=== PATIENT | female | born 1995 ===

== ENCOUNTER 2017-10-31 15:11 | Emergency (ER) | payer MEDICAID ==
[2017-10-31 15:19] VITALS: BP 127/88; PULSE 96; RESP 18; TEMP 97.5; O2SAT 99
[2017-10-31] MEDS ORDERED: Sodium Chloride 0.9% 1,000 ML IV STA (15:29)
--- NOTE | 2017-10-31 15:39 | ED PDOC ---
HPI: Female Pain Time Seen by Provider: 10/31/17 15:28 Chief Complaint (Nursing): Female Genitourinary Chief Complaint (Provider): Female genitourinary History Per: Patient History/Exam Limitations: no limitations Onset/Duration Of Symptoms: Days (x1) Severity: None Pain Scale Rating Of: 0 Quality Of Discomfort: denies: Burning Associated Symptoms: denies: Fever, Chills, Urinary Symptoms (dysuria) Additional Complaint(s): Jackeline Cole is a 22 year old female, with no past medical history, who was brought to the emergency department by EMS for blood in urine onset since today. Patient was at work, she went to the bathroom when she noticed blood in her urine. She states in wasn't heavy bleeding, but noted blood in toilet and after she wiped. Patient is 7 weeks , and this will be her 3rd . She denies any abdominal pain, dysuria, fever or chills. No further medical complaints. PMD: Dr. Jeff : 3 Para: 2 Past Medical History Reviewed: Historical Data, Nursing Documentation, Vital Signs Vital Signs: Last Vital Signs Temp 97.5 F L 10/31/17 15:17 Pulse 96 H 10/31/17 15:17 Resp 18 10/31/17 15:17 BP 127/88 10/31/17 15:17 Pulse Ox 99 10/31/17 15:17 - Family History Family History: States: Unknown Family Hx - Social History Current smoker - smoking cessation education provided: No Alcohol: None Drugs: Denies - Allergies Allergies/Adverse Reactions: Allergies Allergy/AdvReac Type Severity Reaction Status Date / Time No Known Allergies Allergy Verified 10/31/17 15:17 Review of Systems ROS Statement: Except As Marked, All Systems Reviewed And Found Negative Constitutional: Negative for: Fever, Chills Gastrointestinal: Negative for: Abdominal Pain Genitourinary Female: Positive for: Vaginal Bleeding. Negative for: Dysuria Physical Exam - Reviewed Nursing Documentation Reviewed: Yes Vital Signs Reviewed: Yes - Physical Exam Appears: Positive for: Well, Non-toxic, No Acute Distress Head Exam: Positive for: ATRAUMATIC, NORMAL INSPECTION, NORMOCEPHALIC Skin: Positive for: Normal Color, Warm, Dry Eye Exam: Positive for: EOMI, Normal appearance, PERRL Neck: Positive for: Normal, Painless ROM, Supple Cardiovascular/Chest: Positive for: Regular Rate, Rhythm. Negative for: Murmur Respiratory: Positive for: Normal Breath Sounds. Negative for: Respiratory Distress Gastrointestinal/Abdominal: Positive for: Normal Exam, Bowel Sounds, Soft. Negative for: Tenderness, Guarding, Rebound Back: Positive for: Normal Inspection. Negative for: L CVA Tenderness, R CVA Tenderness Extremity: Positive for: Normal ROM. Negative for: Deformity, Swelling Neurologic/Psych: Positive for: Alert, Oriented. Negative for: Motor/Sensory Deficits - Laboratory Results Result Diagrams: 10/31/17 16:02 10/31/17 16:02 - ECG O2 Sat by Pulse Oximetry: 99 (RA) Pulse Ox Interpretation: Normal Medical Decision Making Medical Decision Making: Initial Impression: vaginal bleeding, UTI Initial Plan: --Type and screen --Basic Metabolic Panel -- Serum --Urine dipstick --Urine --CBC w/ differential --NS IV 1,000 ml @ 1,000 mls/hr --Urinalysis --Transvaginal [US] --reevaluation Scribe Attestation: Documented by Oliverio Trejo, acting as a scribe for Juanita Yang MD Provider Scribe Attestation: All medical record entries made by the Scribe were at my direction and personally dictated by me. I have reviewed the chart and agree that the record accurately reflects my personal performance of the history, physical exam, medical decision making, and the department course for this patient. I have also personally directed, reviewed, and agree with the discharge instructions and disposition. Disposition - Clinical Impression Clinical Impression: - Patient ED Disposition Is Patient to be Admitted: No Doctor Will See Patient In The: Office Counseled Patient/Family Regarding: Diagnosis - Disposition Disposition: Routine/Home Disposition Time: 16:49 Condition: STABLE Instructions: (ED) Forms: [facility] (Bulgarian), [facility] ED School/Work Excuse - POA Present On Arrival: None
[2017-10-31 16:08] LABS: BASO % 0.8 % (0.0-2.0); EOS % 0.5 % (0.0-4.0); HEMATOCRIT 38.5 % (34.0-47.0); LYMPH % 16.9 % (20.0-40.0); MEAN CORPUSCULAR HEMOGLOBIN 30.6 pg (27.0-31.0); MEAN CORPUSCULAR HGB CONC 33.6 g/dL (33.0-37.0); MEAN PLATELET VOLUME 8.4 fl (7.2-11.7); MONO # 0.4 K/uL (0.0-0.8); MONO % 7.2 % (0.0-10.0); NEUT # 4.4 K/uL (1.8-7.0); NEUT % 74.6 % (50.0-75.0); RED CELL DISTRIBUTION WIDTH 12.4 % (11.5-14.5); WHITE BLOOD COUNT 5.8 K/uL (4.8-10.8)
[2017-10-31 16:26] LABS: BLOOD UREA NITROGEN 9 mg/dl (7-17); CALCIUM 9.6 mg/dL (8.4-10.2); CARBON DIOXIDE 24 mmol/L (22-30); CHLORIDE 105 mmol/L (98-107); GFR AFRICAN-AMERICAN > 60; GLUCOSE,RANDOM 90 mg/dL (65-105); POTASSIUM 3.7 MMOL/L (3.6-5.0); SODIUM 139 mmol/l (132-148)
[2017-10-31 16:34] LABS: RBC URINE 23 /hpf (0-3); URINE BACTERIA FEW (<OCC); URINE BILIRUBIN NEGATIVE (NEGATIVE); URINE BLOOD LARGE (NEGATIVE); URINE COLOR YELLOW (YELLOW); URINE GLUCOSE (UA) NEG (Normal); URINE KETONE NEGATIVE (NEGATIVE); URINE LEUKOCYTE ESTERASE NEG Leu/uL (Negative); URINE PROTEIN NEGATIVE (NEGATIVE); URINE UROBILINOGEN 0.2-1.0 mg/dL (0.2-1.0); WBC URINE 3 /hpf (0-5)
--- NOTE | 2017-10-31 16:41 | US ---
PROCEDURE: OB Pelvic Ultrasound HISTORY: with slight vaginal bleeding COMPARISON: None available. FINDINGS: UTERUS: Single Live intrauterine gestation. CRL equivalent to 6 weeks and 4 days wks/days gestatioin Gestational sac diameter equivalent to 6 weeks and 0 days wks/days gestation age (Ultrasound estimated): 6 weeks and 2 days Date of delivery (Ultrasound estimated) : 06/24/2018 Heart rate: 120 bpm. [place]-gestational hemorrhage: None. Uterus measures 9.4 x 5.5 x 6.8 cm. No mass CERVIX: Long and closed. No cervical abnormality seen. RIGHT OVARY: Measures 3.0 x 1.3 x 2.7 cm. No mass. Normal flow. LEFT OVARY: Measures 3.0 x 2.2 x 3.8 cm. No mass. Normal flow. FREE FLUID: None. OTHER FINDINGS: None. IMPRESSION: Single live intrauterine gestation with mean gestational age of 6 weeks and 2 days. Estimated date of delivery by ultrasound is 06/24/2018. The ultrasound dates correspond with the clinical dates.
== END 2017-10-31 17:10 | disposition home or self-care (01) ==
LOC: H.ER 15:11
DX: O23.41 Unspecified infection of urinary tract in pregnancy, first trimester (principal); Z3A.01 Less than 8 weeks gestation of pregnancy
CPT/HCPCS: 76830; 80048; 81003; 81025; 84702; 85025; 86850; 86900; 99284; J7040